=== PATIENT | female | born 1980 | race Caucasian/White ===

== ENCOUNTER 2019-06-14 18:53 | Emergency (ER) | payer MEDICAID, OTHER ==
[2019-06-14 19:20] VITALS: BP 140/96
--- NOTE | 2019-06-14 19:32 | EDM.PDOC ---
ED HPI GENERAL MEDICAL PROBLEM - General Chief Complaint: [employer] Problem Stated Complaint: AND BLEEDING Time Seen by Provider: 06/14/19 19:27 Source of Information: Reports: Patient History Limitations: Reports: No Limitations - History of Present Illness INITIAL COMMENTS - FREE TEXT/NARRATIVE: Alert 39 yo male present from [facility] for evaluation of vaginal bleeding in early . Patient believes her last Menstrual period was in April. Patient has had 3 in the past and children are under the care of the father. Patient has had symptoms of early including nausea ( without vomiting), breast tenderness and believes she is feeling movement. Patient used the bathroom this evening after dinner around 6pm and noted blood in the toilet changing to water to a pinkish color with very small clots (pea sized). Patient denies headache, sore throat, URI symptoms, cough, SOB or chest pain. Patient denies urinary symptoms or concerns of UTI. Patient has been incarcerated since Saturday. Patient states she just took a home test on Saturday. Patient has chronic mid and lower back pain which is not new worse or different than typical. Patient denies any additional vaginal discharge lesions or odor. Middle Back Pain Score (Numeric/FACES): 10 - Related Data Allergies Allergy/AdvReac Type Severity Reaction Status Date / Time No Known Allergies Allergy Verified 06/14/19 19:10 Home Meds: Home Meds Acetaminophen [Tylenol] 325 - 650 mg PO Q6H PRN 90 Days #100 tab 06/14/19 [Rx] #103/Iron Fumarate/Fa [ ] 1 each PO DAILY 90 Days #100 tablet 06/14/19 [Rx] Past Medical History Cardiovascular History: Reports: Arrhythmia, Hypertension [employer] History: Reports: Polycystic Ovaries, Other [employer] History: exploratory surgery for ovarian cysts Musculoskeletal History: Reports: Arthritis, Back Pain, Chronic Neurological History: Reports: Migraines Psychiatric History: Reports: Anxiety, Depression - Infectious Disease History Infectious Disease History: Reports: Chicken Pox Social & Family History - Tobacco Use Smoking Status *Q: Current Every Day Smoker Years of Tobacco use: 10 Packs/Tins Daily: 0.5 Used Tobacco, but Quit: No Second Hand Smoke Exposure: Yes - Caffeine Use Caffeine Use: Reports: Soda - Recreational Drug Use Recreational Drug Use: No ED ROS GENERAL - Review of Systems Review Of Systems: ROS reveals no pertinent complaints other than HPI. ED EXAM, GI/ABD - Physical Exam Exam: See Below Text/Narrative:: Patient verbally consented to given urine sample for drug testing during visit today. Exam Limited By: No Limitations General Appearance: Alert, WD/WN, No Apparent Distress Eyes: Bilateral: Normal Appearance, EOMI Ears: Normal External Exam, Normal Canal, Hearing Grossly Normal, Normal TMs Nose: Normal Inspection, Normal Mucosa, No Blood Throat/Mouth: Normal Inspection, Normal Lips, Normal Teeth, Normal Gums, Normal Oropharynx, Normal Voice, No Airway Compromise Head: Atraumatic, Normocephalic Neck: Normal Inspection, Supple, Non-Tender, Full Range of Motion Respiratory/Chest: No Respiratory Distress, Lungs Clear, Normal Breath Sounds, No Accessory Muscle Use, Chest Non-Tender Cardiovascular: Normal Peripheral Pulses, Regular Rate, Rhythm GI/Abdominal Exam: Normal Bowel Sounds, Soft, No Organomegaly, No Distention, No Abnormal Bruit, No Mass, Pelvis Stable, Tender (mild discomfort left lower abdomen) (Female) Exam: Deferred, Other (offered but declined) Back Exam: Normal Inspection, Full Range of Motion, Other (vague mid and lower back discomfort ) Extremities: Normal Inspection, Normal Range of Motion, Non-Tender, Normal Capillary Refill, No Pedal Edema Neurological: Alert, Oriented, CN II-XII Intact, Normal Cognition, Normal Gait, Normal Reflexes, No Motor/Sensory Deficits Psychiatric: Normal Affect, Normal Mood, Flat Affect Skin Exam: Warm, Dry, Intact, Normal Color, No Rash Course - Vital Signs Last Recorded V/S: Last Vital Signs Temp 35.6 C 06/14/19 19:17 Pulse 122 H 06/14/19 19:17 Resp 16 06/14/19 19:17 BP 140/96 H 06/14/19 19:17 Pulse Ox 98 06/14/19 19:17 - Orders/Labs/Meds Orders: Active Orders 24 hr Category Date Time Status Pelvic Exam, Set Up [RC] ASDIRECTED Care 06/14/19 19:33 Stop Req ABO/RH TYPE [BBK] Stat Lab 06/14/19 19:39 Results PATIENT RETYPE [BBK] Stat Lab 06/14/19 19:39 Results Labs: Laboratory Tests 06/14/19 06/14/19 06/14/19 Range/Units 19:38 19:38 19:39 WBC 10.3 (4.5-11.0) K/uL RBC 4.78 (3.30-5.50) M/uL Hgb 14.0 (12.0-15.0) g/dL Hct 41.4 (36.0-48.0) % MCV 87 (80-98) fL MCH 29 (27-31) pg MCHC 34 (32-36) % Plt Count 297 (150-400) K/uL Neut % (Auto) 67 H (36-66) % Lymph % (Auto) 25 (24-44) % [place] % (Auto) 6 (2-6) % Eos % (Auto) 2 (2-4) % Baso % (Auto) 0 (0-1) % HCG, Quant 06446 H (0-6) mIU/mL Urine Color (YELLOW) Urine Appearance (CLEAR) Urine pH (5.0-8.0) Ur Specific [place] (1.008-1.030) Urine Protein (NEGATIVE) mg/dL Urine Glucose (UA) (NEGATIVE) mg/dL Urine Ketones (NEGATIVE) mg/dL Urine Occult Blood (NEGATIVE) Urine Nitrite (NEGATIVE) Urine Bilirubin (NEGATIVE) Urine Urobilinogen (0.2-1.0) EU/dL Ur Leukocyte Esterase (NEGATIVE) Urine RBC (0-5) Urine WBC (0-5) Ur Epithelial Cells Amorphous Sediment Urine Bacteria Urine Mucus Blood Type A POSITIVE 06/14/19 Range/Units 19:58 WBC (4.5-11.0) K/uL RBC (3.30-5.50) M/uL Hgb (12.0-15.0) g/dL Hct (36.0-48.0) % MCV (80-98) fL MCH (27-31) pg MCHC (32-36) % Plt Count (150-400) K/uL Neut % (Auto) (36-66) % Lymph % (Auto) (24-44) % [place] % (Auto) (2-6) % Eos % (Auto) (2-4) % Baso % (Auto) (0-1) % HCG, Quant (0-6) mIU/mL Urine Color Yellow (YELLOW) Urine Appearance Clear (CLEAR) Urine pH 6.0 (5.0-8.0) Ur Specific [place] > 1.030 (1.008-1.030) Urine Protein Negative (NEGATIVE) mg/dL Urine Glucose (UA) Normal (NEGATIVE) mg/dL Urine Ketones Negative (NEGATIVE) mg/dL Urine Occult Blood Negative (NEGATIVE) Urine Nitrite Negative (NEGATIVE) Urine Bilirubin Negative (NEGATIVE) Urine Urobilinogen 0.2 (0.2-1.0) EU/dL Ur Leukocyte Esterase Trace H (NEGATIVE) Urine RBC 0-5 (0-5) Urine WBC Not seen (0-5) Ur Epithelial Cells Rare Amorphous Sediment Not seen Urine Bacteria Rare Urine Mucus Rare Blood Type Departure - Departure Time of Disposition: 20:39 Disposition: Home, Self-Care 01 Clinical Impression: Threatened , Vaginal bleeding affecting early - Discharge Information Prescriptions: Acetaminophen [Tylenol] 325 - 650 mg PO Q6H PRN 90 Days #100 tab PRN Reason: pain #103/Iron Fumarate/Fa [ ] 1 each PO DAILY 90 Days #100 tablet Instructions: Threatened Miscarriage, Vaginal Bleeding During , First Trimester, Care, Preventing , Preventing Illegal Drug Use During Referrals: PCP,None [Primary Care Provider] - Forms: ED Department Discharge Additional Instructions: 1. Tylenol as directed for pain if needed. 2. Vitamin daily for the duration of . 3. No additional medications or drug recommended during . 4. No marijuana alcohol, illegal or illicit drugs during . 5. Quantitative HGB 41,095 indicates is too large to be outside the Uterus and date from 6weeks to 40 wks. Repeat testing in 48-72 hrs recommended to ensure health of . 6. Outpatient evaluation recommended for OB Care with Ultrasound for dates. 7. Return to ER if increased bleeding, passing clots (soaking more than 1 pad per hour for more than three hours for symptoms of anemia). - Problem List & Annotations (1) Threatened SNOMED Code(s): 99537034 Code(s): O20.0 - THREATENED Status: Acute Current Visit: Yes (2) Vaginal bleeding affecting early SNOMED Code(s): 023926554 Code(s): O20.8 - OTHER HEMORRHAGE IN EARLY Status: Acute Current Visit: Yes - My Orders Last 24 Hours: My Active Orders 06/14/19 19:33 Pelvic Exam, Set Up [RC] ASDIRECTED 06/14/19 19:39 ABO/RH TYPE [BBK] Stat PATIENT RETYPE [BBK] Stat - Assessment/Plan Last 24 Hours: My Active Orders 06/14/19 19:33 Pelvic Exam, Set Up [RC] ASDIRECTED 06/14/19 19:39 ABO/RH TYPE [BBK] Stat PATIENT RETYPE [BBK] Stat
== END 2019-06-14 21:07 | disposition home or self-care (01) ==
LOC: JP.ED 18:53
DX: O20.0 Threatened abortion (principal); O09.529 Supervision of elderly multigravida, unspecified trimester; O10.919 Unspecified pre-existing hypertension complicating pregnancy, unspecified trimester; O99.330 Smoking (tobacco) complicating pregnancy, unspecified trimester; F17.210 Nicotine dependence, cigarettes, uncomplicated
CPT/HCPCS: 36415; 81001; 84702; 85025; 86900; 86901; 99284